=== PATIENT | male | born 1965 | race Caucasian/White ===

== ENCOUNTER 2024-03-31 10:29 | Emergency (ER) | payer OTHER ==
[~2024-03-31] VITALS: Ht 172.7 cm; Wt 95.3 kg
[2024-03-31] MEDS ORDERED: ARNUITY ELLIPT50 MCG INH (10:37)
[2024-03-31] MEDS ORDERED: ROSUVASTATIN CA40 MG PO (10:38)
[2024-03-31] MEDS ORDERED: CETIRIZINE10 MG PO (10:38)
[2024-03-31] MEDS ORDERED: OMEPRAZOLE20 M3 PO (10:39)
[2024-03-31] MEDS ORDERED: TAMSULOSIN HCL0.4 MG PO (10:39)
[2024-03-31] MEDS ORDERED: AMLODIPINE BESYL5 MG PO (10:39)
[2024-03-31] MEDS ORDERED: NEURONTIN100 MG PO (10:40)
[2024-03-31] MEDS ORDERED: ASPIRIN ADULT L81 M1 PO (10:40)
[2024-03-31] MEDS ORDERED: NIACIN500 M6 PO (10:41)
[2024-03-31] MEDS ORDERED: FISH OIL 1,0001 EAC1 PO (10:41)
[2024-03-31] MEDS ORDERED: MULTI-VITAMIN1 EACH PO (10:41)
[2024-03-31] MEDS ORDERED: VITAMIN D325 MCG PO (10:42)
[2024-03-31] MEDS ORDERED: IOHEXOL 300 MG/ML 100 ML VIAL IV ONE (11:25)
[2024-03-31] MEDS ORDERED: ACETAMINOPHEN 325 MG TAB PO ONE (13:10)
== END 2024-03-31 14:59 | disposition home or self-care (01) ==
LOC: ED 10:29
DX: M54.2 Cervicalgia (principal); M54.50 Low back pain, unspecified; M25.512 Pain in left shoulder; R10.9 Unspecified abdominal pain; R07.89 Other chest pain; F17.200 Nicotine dependence, unspecified, uncomplicated; Z88.1 Allergy status to other antibiotic agents; Z88.8 Allergy status to other drugs, medicaments and biological substances; Z88.6 Allergy status to analgesic agent; Z79.899 Other long term (current) drug therapy; Z79.82 Long term (current) use of aspirin; V62 Occupant of heavy transport vehicle injured in collision with two- or three-wheeled motor vehicle; Y93.I9 Activity, other involving external motion; Y92.89 Other specified places as the place of occurrence of the external cause; Y99.8 Other external cause status